=== PATIENT | male | born 1960 | race Caucasian/White ===

== ENCOUNTER 2022-05-19 09:03 | Outpatient (RCR) | payer SELFPAY | END 2022-05-20 | disposition home or self-care (01) | LOC: CR 09:03 | PROVIDERS: ATTEND Internal Medicine Cardiovascular Disease | DX: Z29.8 Encounter for other specified prophylactic measures (principal); I25.10 Atherosclerotic heart disease of native coronary artery without angina pectoris | CPT/HCPCS: 93798 ==

== ENCOUNTER 2022-06-09 10:39 | Outpatient (RCR) | payer SELFPAY | END 2022-06-17 | disposition home or self-care (01) | LOC: CR 10:39 | PROVIDERS: ATTEND Internal Medicine Cardiovascular Disease | DX: Z29.8 Encounter for other specified prophylactic measures (principal); I25.10 Atherosclerotic heart disease of native coronary artery without angina pectoris | CPT/HCPCS: 93798 ==

== ENCOUNTER 2022-07-16 09:19 | Outpatient (RCR) | payer SELFPAY | END 2022-07-18 | disposition home or self-care (01) | LOC: CR 09:19 | PROVIDERS: ATTEND Internal Medicine Cardiovascular Disease | DX: Z29.8 Encounter for other specified prophylactic measures (principal); I25.10 Atherosclerotic heart disease of native coronary artery without angina pectoris; I50.9 Heart failure, unspecified | CPT/HCPCS: 93798 ==

== ENCOUNTER 2022-08-01 09:13 | Outpatient (RCR) | payer SELFPAY | END 2022-08-17 | disposition home or self-care (01) | LOC: CR 09:13 | PROVIDERS: ATTEND Internal Medicine Cardiovascular Disease | DX: Z29.8 Encounter for other specified prophylactic measures (principal); I25.10 Atherosclerotic heart disease of native coronary artery without angina pectoris | CPT/HCPCS: 93798 ==

== ENCOUNTER 2022-08-18 07:24 | Outpatient (RCR) | payer OTHER | END 2022-09-17 | disposition home or self-care (01) | LOC: CR 07:24 | PROVIDERS: ATTEND Internal Medicine Cardiovascular Disease | DX: Z29.8 Encounter for other specified prophylactic measures (principal); I25.10 Atherosclerotic heart disease of native coronary artery without angina pectoris | CPT/HCPCS: 93798 ==